=== PATIENT | male | born 1960 | race Hispanic/Latino ===

== ENCOUNTER → 2021-05-30 | Outpatient (CLI) | payer OTHER | LOC: US 07:45 | PROVIDERS: ATTEND Internal Medicine Gastroenterology | DX: R10.9 Unspecified abdominal pain (principal) | CPT/HCPCS: 76700 ==

== ENCOUNTER → 2021-06-07 | Day surgery (SDC) | payer OTHER ==
[~2021-06-07] MED LIST: ALLEGRA ALLERGY60 MG PO; FLONASE ALLERG9.9 ML INH; OS-CAL 500+D T1 EACH PO; SODIUM CHLORIDE 0.9% 50ML 50 ML ONE; TYLENOL SINUS PO; TYLENOL325 MG PO
[2021-06-07 09:30] VITALS: BP 119/88
== END | disposition home or self-care (01) ==
LOC: OR 07:22
PROVIDERS: ATTEND Internal Medicine Gastroenterology
DX: Z12.11 Encounter for screening for malignant neoplasm of colon (principal); K63.5 Polyp of colon; K29.70 Gastritis, unspecified, without bleeding; K25.9 Gastric ulcer, unspecified as acute or chronic, without hemorrhage or perforation; K21.00 Gastro-esophageal reflux disease with esophagitis, without bleeding; K44.9 Diaphragmatic hernia without obstruction or gangrene; K31.89 Other diseases of stomach and duodenum; K57.30 Diverticulosis of large intestine without perforation or abscess without bleeding; K64.8 Other hemorrhoids; Z88.0 Allergy status to penicillin; Z01.810 Encounter for preprocedural cardiovascular examination; Z01.812 Encounter for preprocedural laboratory examination; Z20.822 Contact with and (suspected) exposure to COVID-19
CPT/HCPCS: 43239; 45380; 93005; C9113; U0002; 45378